=== PATIENT | male | born 1995 | race Native Hawaiian/Other Pacific Islander ===

== ENCOUNTER 2021-07-11 22:28 | Emergency (ER) | payer SELFPAY ==
[2021-07-11 22:57] LABS: Bilirubin,Urine NEG (Negative); Blood,Urine NEG (Negative); Color,Urine Yellow (Yellow); Protein,Urine <15 mg/dL mg/dL (Negative); RBC,Urine < 1.0 /HPF (0.0-6.0); Urobilinogen,Urine < 2.0 mg/dL (<2.0); WBC,Urine < 1.0 /HPF (0.0-6.0)
[2021-07-11 23:14] LABS: Basophils % (Auto) 0.6 % (0.0-1.8); Eosinophils % (Auto) 1.3 % (0.0-4.3); Hematocrit 51.5 % (35.5-45.6); Hemoglobin 16.8 gm/dl (11.8-15.2); Lymphocytes # (Auto) 1.6 K/mm3 (1.2-5.4); Lymphocytes % (Auto) 46.2 % (13.4-35.0); Mean Corpuscular HGB Conc 33 % (32-34); Mean Corpuscular Volume 84 fl (84-94); Monocytes # (Auto) 0.4 K/mm3 (0.0-0.8); Monocytes % (Auto) 10.9 % (0.0-7.3); Platelet Count 153 K/mm3 (140-440); Red Blood Count 6.14 M/mm3 (3.65-5.03); Red Cell Distribution Width 14.6 % (13.2-15.2)
[2021-07-11 23:24] LABS: Alanine Aminotransferase 161 units/L (7-56); Albumin 4.5 g/dL (3.9-5); BUN/Creatinine Ratio 7; Blood Urea Nitrogen 6 mg/dL (9-20); Hemolysis Index 6
[2021-07-12] MEDS ORDERED: HYOSCYAMINE SUBL 0.125 MG TAB SL ONE (01:59)
[2021-07-12] MEDS ORDERED: ONDANSETRON 4 MG/2 ML INJ IV STA (01:59)
[2021-07-12] MEDS ORDERED: KETOROLAC 30 MG/1 ML INJ IV STA (01:59)
--- NOTE | 2021-07-12 03:14 | Cat Scan Report ---
CT ABDOMEN AND PELVIS WITH CONTRAST INDICATION / CLINICAL INFORMATION: Patient complains of lower abdomnal pain. TECHNIQUE: Axial CT images were obtained through the abdomen and pelvis after 100 cc of Omnipaque [address] scans at this location are performed using CT dose reduction for ALARA by means of automated exposure control. COMPARISON: None available. FINDINGS: LOWER CHEST: No significant abnormality. AORTA / ARTERIES: No significant abnormality. IVC / VEINS: No significant abnormality. LYMPH NODES: No significant adenopathy. COLON: No significant abnormality. APPENDIX: No significant abnormality. STOMACH / SMALL BOWEL: No significant abnormality. PERITONEUM: No free fluid. No free air. No fluid collection. LIVER: Hepatic steatosis GALLBLADDER: No significant abnormality. BILE DUCTS: No significant abnormality. PANCREAS: No significant abnormality. SPLEEN: No significant abnormality. ADRENALS: No significant abnormality. RIGHT KIDNEY / URETER: No significant abnormality. LEFT KIDNEY / URETER: No significant abnormality. URINARY BLADDER: No significant abnormality. REPRODUCTIVE ORGANS: No significant abnormality. SKELETAL SYSTEM: No significant abnormality. ADDITIONAL FINDINGS: None. IMPRESSION: 1. No CT findings to explain symptomatology. 2. Hepatic steatosis. Signer Name: Wilmar Reid DO Signed: 07/12/2021 3:10 AM Workstation Name: [email or web address]
--- NOTE | 2021-07-12 03:52 | Emergency Department Report ---
ED N/V/D HPI - General Chief complaint: Abdominal Pain Stated complaint: ABDOMINAL PAIN Time Seen by Provider: 07/12/21 01:03 Source: patient Mode of arrival: Ambulatory Limitations: No Limitations - History of Present Illness MD complaint: nausea, vomiting, diarrhea, abdominal pain -: Gradual, days(s) (3) Associated Abdominal Pain: No (Very faint abdominal pain) Location: diffuse Radiation: none Severity: mild, moderate Improves with: none Context: possible food poisoning, sick contacts Associated Symptoms: fever/chills, nausea/vomiting. denies: myalgias, chest pain, diaphoresis, shortness of breath, syncope, weakness - Related Data Previous Rx's Medication Instructions Recorded Last Taken Type Hyoscyamine Subl [Levsin Sl 0.125 0.125 mg SL Q6HR PRN #20 tab 07/12/21 Unknown Rx TAB] Ondansetron [Zofran ODT TAB] 8 mg PO Q12HR #14 tab.rapdis 07/12/21 Unknown Rx Allergies Allergy/AdvReac Type Severity Reaction Status Date / Time No Known Allergies Allergy Unverified 07/11/21 22:33 ED Review of Systems ROS: Stated complaint: ABDOMINAL PAIN Other details as noted in HPI Comment: All other systems reviewed and negative ED Past Medical Hx - Past Medical History Previous Medical History?: No - Surgical History Past Surgical History?: No - Medications Home Medications: Home Medications Medication Instructions Recorded Confirmed Last Taken Type Hyoscyamine Subl [Levsin Sl 0.125 0.125 mg SL Q6HR PRN #20 tab 07/12/21 Unknown Rx TAB] Ondansetron [Zofran ODT TAB] 8 mg PO Q12HR #14 tab.rapdis 07/12/21 Unknown Rx ED Physical Exam - General Limitations: No Limitations General appearance: alert, in no apparent distress - Head Head exam: Present: atraumatic, normocephalic - Eye Eye exam: Present: normal appearance - ENT ENT exam: Present: mucous membranes moist - Neck Neck exam: Present: normal inspection - Respiratory Respiratory exam: Present: normal lung sounds bilaterally. Absent: respiratory distress - Cardiovascular Cardiovascular Exam: Present: regular rate, normal rhythm. Absent: systolic murmur, diastolic murmur, rubs, gallop - GI/Abdominal GI/Abdominal exam: Present: soft, normal bowel sounds. Absent: tenderness, hyperactive bowel sounds, hypoactive bowel sounds, organomegaly, bruit - Rectal Rectal exam: Present: deferred - Extremities Exam Extremities exam: Present: normal inspection - Back Exam Back exam: Present: normal inspection - Neurological Exam Neurological exam: Present: alert, oriented X3 - Psychiatric Psychiatric exam: Present: normal affect, normal mood - Skin Skin exam: Present: warm, dry, intact, normal color. Absent: rash ED Course Vital Signs 07/11/21 07/12/21 22:30 02:30 Temperature 97.3 F L Pulse Rate 75 Respiratory 16 16 Rate Blood Pressure 116/89 O2 Sat by Pulse 99 Oximetry ED Medical Decision Making - Lab Data Result diagrams: 07/11/21 22:44 07/11/21 22:44 - Radiology Data Radiology results: report reviewed [facility] [address] [place] [address] Cat Scan Report Signed Patient: ANTHONY CHEN MR#: [id number] 3 : 1995 Acct:[id number] Age/Sex: 25 / M ADM Date: 07/11/21 Loc: ED Attending Dr: Ordering Physician: TRINY DURAN Date of Service: 07/12/21 Procedure(s): CT abdomen pelvis w con Accession Number(s): [id number] cc: TRINY DURAN CT ABDOMEN AND PELVIS WITH CONTRAST INDICATION / CLINICAL INFORMATION: Patient complains of lower abdomnal pain. TECHNIQUE: Axial CT images were obtained through the abdomen and pelvis after 100 cc of Omnipaque [address] scans at this location are performed using CT dose reduction for ALARA by means of automated exposure control. COMPARISON: None available. FINDINGS: LOWER CHEST: No significant abnormality. AORTA / ARTERIES: No significant abnormality. IVC / VEINS: No significant abnormality. LYMPH NODES: No significant adenopathy. COLON: No significant abnormality. APPENDIX: No significant abnormality. STOMACH / SMALL BOWEL: No significant abnormality. PERITONEUM: No free fluid. No free air. No fluid collection. LIVER: Hepatic steatosis GALLBLADDER: No significant abnormality. BILE DUCTS: No significant abnormality. PANCREAS: No significant abnormality. SPLEEN: No significant abnormality. ADRENALS: No significant abnormality. RIGHT KIDNEY / URETER: No significant abnormality. LEFT KIDNEY / URETER: No significant abnormality. URINARY BLADDER: No significant abnormality. REPRODUCTIVE ORGANS: No significant abnormality. SKELETAL SYSTEM: No significant abnormality. ADDITIONAL FINDINGS: None. IMPRESSION: 1. No CT findings to explain symptomatology. 2. Hepatic steatosis. Signer Name: Wilmar Reid DO Signed: 07/12/2021 3:10 AM Workstation Name: [id number] Transcribed By: DAWNA Dictated By: WILMAR REID DO Electronically Authenticated By: WILMAR REID DO Signed Date/Time: 07/12/21309 DD/ 5 TD/TT: Print - Medical Decision Making The cause of the patient symptoms not clear but the patient is overall well- appearing and suspected to have a transient course of illness. Given the course and examination does not appear to be an emergent cause of the symptoms such as small bowel obstruction, coronary syndrome, bowel ischemia, DKA, pancreatitis, appendicitis, other acute abdomen or other emergent problem. Reassessment after treatment the patient is feeling much much better tolerating p.o. fluids and shows no signs of any dehydration. Disposition discharge home with prompt primary care physician follow-up in the next 24 hours strict return precautions were discussed Critical care attestation.: If time is entered above; I have spent that time in minutes in the direct care of this critically ill patient, excluding procedure time. ED Disposition Clinical Impression: Abdominal pain, Vomiting Disposition: 01 HOME / SELF CARE / HOMELESS Is pt being admited?: No Does the pt Need Aspirin: No Condition: Stable Instructions: Abdominal Pain, Adult, Nausea and Vomiting, Adult, Flank Pain, Adult Prescriptions: Hyoscyamine Subl [Levsin Sl 0.125 TAB] 0.125 mg SL Q6HR PRN #20 tab PRN Reason: abdominal cramps and spasms Ondansetron [Zofran ODT TAB] 8 mg PO Q12HR #14 tab.alfredito Referrals: PRIMARY CARE, [Primary Care Provider] - 3-5 Days
[2021-07-12 04:34] VITALS: BP 116/85
== END 2021-07-12 04:35 | disposition home or self-care (01) ==
LOC: ED 22:28
DX: R10.9 Unspecified abdominal pain (principal); R11.10 Vomiting, unspecified
CPT/HCPCS: 36415; 74177; 80053; 81001; 85025; 96374; 96375; 99284; J1885; J2405; Q9967